=== PATIENT | female | born 1980 | race African-American/Black ===

== ENCOUNTER 2021-03-25 09:21 | Emergency (ER) | payer OTHER ==
[2021-03-25] MEDS ORDERED: NAPROXEN500 MG PO (09:44)
== END 2021-03-25 09:59 | disposition home or self-care (01) ==
LOC: FER 09:21
DX: Z04.1 Encounter for examination and observation following transport accident (principal); I10 Essential (primary) hypertension; Z79.899 Other long term (current) drug therapy
CPT/HCPCS: 99282